=== PATIENT | female | born 2000 | race African-American/Black ===

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

== ENCOUNTER 2019-01-20 04:01 | Emergency (ER) | payer BC ==
[~2019-01-20] VITALS: Ht 165.1 cm; Wt 81.6 kg
[~2019-01-20 04:01] MED LIST changes: +NAPR-514 PO
[2019-01-20 04:56] VITALS: BP 137/88
[2019-01-20 05:02] LABS: BILIRUBIN,URINE NEGATIVE (NEG); CLARITY,URINE CLEAR; COLOR,URINE YELLOW; NITRITE,URINE NEGATIVE (NEG); PROTEIN,URINE NEGATIVE (NEG-TRACE)
--- NOTE | 2019-01-20 05:03 | PHYS DOC ---
Past Medical History Past Medical History: No Pertinent History Past Surgical History: No Surgical History Alcohol Use: None Drug Use: None Adult General Chief Complaint Chief Complaint: ABDOMINAL PAIN HPI HPI Patient is a 18 year old [place] female presents with intermittent abdominal cramping, bloating and diarrhea. Symptom onset was 4-5 days ago. Symptoms are worse after eating. Cramping is migratory is rated [id number]. Patient denies nausea, did vomit once prior to ED arrival. She did take Pepto-Bismol and Imodium last night which seemed to improve her symptoms. Patient denies fever, recent antibiotics, bloody stools, daycare setting exposure, recent travel, camping or known infectious diarrhea exposure. Prior abdominal surgeries. Last menstrual period was 10 days ago. Patient currently denies pain or symptoms in the emergency department. Reports occasional: Tobacco use eyes [] Review of Systems Review of Systems Review symptoms as per history of present illness. All other review symptoms are negative. All other systems were reviewed and found to be within normal limits, except as documented in this note. Allergies Allergies Allergies Coded Allergies Type Severity Reaction Last Updated Verified No Known Drug Allergies 04/18/16 No Physical Exam Physical Exam Constitutional: Well developed, well nourished, no acute distress, non-toxic appearance. [] HENT: Normocephalic, atraumatic, bilateral external ears normal, oropharynx moist, no oral exudates, nose normal. [] Eyes: PERRLA, EOMI, conjunctiva normal, no discharge. [] Neck: Normal range of motion, no tenderness, supple, no stridor. [] Cardiovascular:Heart rate regular rhythm, no murmur [] Lungs & Thorax: Bilateral breath sounds clear to auscultation [] Abdomen: Bowel sounds normal, soft, no distention, increased bowel sounds. No tenderness. [] Skin: Warm, dry,[] Back: No tenderness, no CVA tenderness. [] Extremities: No tenderness, no cyanosis, no clubbing, ROM intact, no edema. [] Neurologic: Alert and oriented X 3, normal motor function, normal sensory function, no focal deficits noted. [] Psychologic: Affect normal, judgement normal, mood normal. [] Current Patient Data Vital Signs Vital Signs Date Time Temp Pulse Resp B/P (MAP) Pulse Ox O2 Delivery O2 Flow Rate FiO2 01/20/19 04:56 98.0 81 12 137/88 (104) 98 Room Air 98.0 Lab Values Laboratory Tests Test 01/20/19 04:04 Urine Collection Type Unknown Urine Color Yellow Urine Clarity Clear Urine pH 6.0 Urine Specific [place] >=1.030 Urine Protein Negative mg/dL (NEG-TRACE) Urine Glucose (UA) Negative mg/dL (NEG) Urine Ketones (Stick) Negative mg/dL (NEG) Urine Blood Negative (NEG) Urine Nitrite Negative (NEG) Urine Bilirubin Negative (NEG) Urine Urobilinogen Dipstick 1.0 mg/dL (0.2 mg/dL) Urine Leukocyte Esterase Negative (NEG) Urine RBC Occ /HPF (0-2) Urine WBC Occ /HPF (0-4) Urine Squamous Epithelial Cells Few /LPF Urine Bacteria Few /HPF (0-FEW) Urine Mucus Mod /LPF EKG EKG [] Radiology/Procedures Radiology/Procedures [] Course & Med Decision Making Course & Med Decision Making Pertinent Labs and Imaging studies reviewed. (See chart for details) [Abdomen is soft, nontender in the ED. Labs reviewed. Recommend supportive care with dietary modification PCP follow-up. Patient states she ate barbecued chicken and macaroni green beans prior to episodes last evening. Return precautions reviewed. Dragon Disclaimer Dragon Disclaimer This electronic medical record was generated, in whole or in part, using a voice recognition dictation system. Departure Departure Impression: Primary Impression: Abdominal pain Additional Impression: Enteritis Referrals: UNKNOWN PCP NAME (PCP) Problem Qualifiers PAKO BALDERAS DO Jan 20, 2019 05:03
[2019-01-20 05:17] LABS: BACTERIA,URINE FEW /HPF (0-FEW); RBC,URINE OCC /HPF (0-2); SQUAMOUS EPITHELIAL CELL,UR FEW /LPF; WBC,URINE OCC /HPF (0-4)
== END 2019-01-20 05:35 | disposition home or self-care (01) ==
LOC: ER 04:01
DX: K52.9 Noninfective gastroenteritis and colitis, unspecified (principal); R10.9 Unspecified abdominal pain; R14.0 Abdominal distension (gaseous)
CPT/HCPCS: 81001; 99283

== ENCOUNTER 2019-08-27 14:28 | Emergency (ER) | payer OTHER ==
[~2019-08-27] VITALS: Ht 166.4 cm; Wt 114.0 kg
[2019-08-27 15:00] VITALS: BP 140/70
--- NOTE | 2019-08-27 15:51 | PHYS DOC ---
Past Medical History Past Medical History: No Pertinent History Past Surgical History: No Surgical History Smoking Status: Never Smoker Alcohol Use: None Drug Use: Marijuana General Adult EDM: Chief Complaint: OTHER COMPLAINTS HPI: HPI: 19-year-old female presents with a ulcer on her frenulum over the last couple of days. She states it is burning. She denies any other symptoms at this time. She does not have any ulcers on her lips or tongue. [] Review of Systems: Review of Systems: Constitutional: Denies fever or chills. [] Eyes: Denies change in visual acuity. [] HENT: Per HPI [] Heart Score: Risk Factors: Risk Factors: DM, Current or recent (<one month) smoker, HTN, HLP, family his tory of CAD, obesity. Risk Scores: Score 0 - 3: 2.5% MACE over next 6 weeks - Discharge Home Score 4 - 6: 20.3% MACE over next 6 weeks - Admit for Clinical Observation Score 7 - 10: 72.7% MACE over next 6 weeks - Early Invasive Strategies Allergies: Allergies: Allergies Coded Allergies Type Severity Reaction Last Updated Verified No Known Drug Allergies 04/18/16 No Physical Exam: PE: Constitutional: Well developed, well nourished, no acute distress, non-toxic appearance. [] HENT: Small aphthous ulcer on her frenulum. [] Eyes: PERRLA, EOMI, conjunctiva normal, no discharge. [] Neck: Normal range of motion, no tenderness, supple, no stridor. [] Cardiovascular:Heart rate regular rhythm, no murmur [] Lungs & Thorax: Bilateral breath sounds clear to auscultation [] Abdomen: Bowel sounds normal, soft, no tenderness, no masses, no pulsatile masses. [] Skin: Warm, dry, no erythema, no rash. [] Back: No tenderness, no CVA tenderness. [] Extremities: No tenderness, no cyanosis, no clubbing, ROM intact, no edema. [] Neurologic: Alert and oriented X 3, normal motor function, normal sensory function, no focal deficits noted. [] Psychologic: Affect normal, judgement normal, mood normal. [] Current Patient Data: Vital Signs: Vital Signs Date Time Temp Pulse Resp B/P (MAP) Pulse Ox O2 Delivery O2 Flow Rate FiO2 08/27/19 15:00 98.3 70 12 140/70 (93) 99 Room Air 98.3 EKG: EKG: [] Radiology/Procedures: Radiology/Procedures: [] Course & Med Decision Making: Course & Med Decision Making Pertinent Labs and Imaging studies reviewed. (See chart for details) [] Dragon Disclaimer: Dragon Disclaimer: This electronic medical record was generated, in whole or in part, using a voice recognition dictation system. Departure Departure Impression: Primary Impression: Aphthous ulcer of mouth Disposition: HOME, SELF-CARE Condition: STABLE Referrals: NO PCP (PCP) Patient Instructions: Oral Ulcers Additional Instructions: Return to the emergency department with any new or concerning symptoms Justicifation of Admission Dx: Justifications for Admission: Justification of Admission Dx: No WON REAVES DO Aug 27, 2019 15:51
== END 2019-08-27 18:37 | disposition home or self-care (01) ==
LOC: ER 14:28
DX: K12.0 Recurrent oral aphthae (principal)
CPT/HCPCS: 99281

== ENCOUNTER 2019-08-29 00:03 | Emergency (ER) | payer OTHER ==
[~2019-08-29] VITALS: Ht 167.6 cm; Wt 113.6 kg
[2019-08-29 02:28] VITALS: BP 123/68
[2019-08-29] MEDS ORDERED: DICL50TA4 PO (02:36)
[2019-08-29] MEDS ORDERED: TRAM50TA PO (02:36)
--- NOTE | 2019-08-29 02:37 | PHYS DOC ---
Past Medical History Past Medical History: No Pertinent History Past Surgical History: No Surgical History Smoking Status: Never Smoker Alcohol Use: None Drug Use: Marijuana General Adult EDM: Chief Complaint: LOWER EXT PAIN HPI: HPI: Patient is a 19 year old female who presents with complaint of menstrual cramps and leg cramps. Patient states that is getting time for her menstrual cycle and she states that she usually has fairly bad menstrual cramps and when she gets the menstrual cramps she usually gets leg cramps in her thighs as well. She states the pain got so bad tonight that she had to leave work. [] Review of Systems: Review of Systems: Constitutional: Denies fever or chills. [] Respiratory: Denies cough or shortness of breath. [] Cardiovascular: Denies chest pain or edema. [] GI: Complains of menstrual cramps. [] Musculoskeletal: Complains of upper thigh cramps/pain. [] Integument: Denies rash. [] Neurologic: Denies headache, focal weakness or sensory changes. [] Heart Score: Risk Factors: Risk Factors: DM, Current or recent (<one month) smoker, HTN, HLP, family history of CAD, obesity. Risk Scores: Score 0 - 3: 2.5% MACE over next 6 weeks - Discharge Home Score 4 - 6: 20.3% MACE over next 6 weeks - Admit for Clinical Observation Score 7 - 10: 72.7% MACE over next 6 weeks - Early Invasive Strategies Allergies: Allergies: Allergies Coded Allergies Type Severity Reaction Last Updated Verified No Known Drug Allergies 04/18/16 No Physical Exam: PE: Constitutional: Well developed, well nourished, no acute distress, non-toxic appearance. [] Cardiovascular:Heart rate regular rhythm, no murmur [] Lungs & Thorax: Bilateral breath sounds clear to auscultation [] Abdomen: Bowel sounds normal, soft, with mild suprapubic tenderness. [] Extremities: No tenderness, no cyanosis, no clubbing, ROM intact, no edema. [] Current Patient Data: Vital Signs: Vital Signs Date Time Temp Pulse Resp B/P (MAP) Pulse Ox O2 Delivery O2 Flow Rate FiO2 08/29/19 00:43 98.3 79 12 117/63 (81) 95 Room Air 98.3 EKG: EKG: [] Radiology/Procedures: Radiology/Procedures: [] Course & Med Decision Making: Course & Med Decision Making Pertinent Labs and Imaging studies reviewed. (See chart for details) [] Dragon Disclaimer: Dragon Disclaimer: This electronic medical record was generated, in whole or in part, using a voice recognition dictation system. Departure Departure Impression: Primary Impression: Menstrual cramps Additional Impression: Leg cramps Disposition: HOME, SELF-CARE Condition: STABLE Referrals: NO PCP (PCP) Patient Instructions: Form - Excuse from Work, School, or Physical Activity, Muscle Cramps Scripts Tramadol Hcl (TRAMADOL HCL) 50 Mg Tablet 50 MG PO Q6HRS PRN for PAIN, #10 TAB Prov: LB HIGGINBOTHAM Jr. DO 08/29/19 Diclofenac Sodium (DICLOFENAC SODIUM) 50 Mg Tablet.dr 1 TAB PO BID PRN for PAIN, #20 TAB Prov: LB HIGGINBOTHAM Jr. DO 08/29/19 Justicifation of Admission Dx: Justifications for Admission: Justification of Admission Dx: Comment: (Not applicable) LB HIGGINBOTHAM Jr. DO Aug 29, 2019 02:37
== END 2019-08-29 03:00 | disposition home or self-care (01) ==
LOC: ER 00:03
DX: N94.6 Dysmenorrhea, unspecified (principal); M79.659 Pain in unspecified thigh; F12.90 Cannabis use, unspecified, uncomplicated
CPT/HCPCS: 99283

== ENCOUNTER 2019-10-08 20:13 | Emergency (ER) | payer OTHER ==
[~2019-10-08] VITALS: Ht 165.1 cm; Wt 108.0 kg
[~2019-10-08 20:13] MED LIST changes: +DICL50TA4 PO; +TRAM50TA PO
[2019-10-08 20:23] VITALS: BP 143/68
--- NOTE | 2019-10-08 20:28 | PHYS DOC ---
Past Medical History Past Medical History: No Pertinent History Past Surgical History: No Surgical History Smoking Status: Current Some Day Smoker Alcohol Use: None Drug Use: Marijuana General Adult EDM: Chief Complaint: TOE PROBLEM HPI: HPI: Patient is a 19 year old female who presents with pain in left 4th and 5th toes from blisters over the last 24 hours. pain is moderate and worse w/ walking. patient was given ibuprofen but didn't take any Review of Systems: Review of Systems: Constitutional: Denies fever or chills. [] Eyes: Denies change in visual acuity. [] HENT: Denies nasal congestion or sore throat. [] Respiratory: Denies cough or shortness of breath. [] Cardiovascular: Denies chest pain or edema. [] GI: Denies abdominal pain, nausea, vomiting, bloody stools or diarrhea. [] : Denies dysuria. [] Musculoskeletal: Denies back pain or joint pain. [] Integument: Denies rash. [] Neurologic: Denies headache, focal weakness or sensory changes. [] Endocrine: Denies polyuria or polydipsia. [] Lymphatic: Denies swollen glands. [] Psychiatric: Denies depression or anxiety. [] Heart Score: Risk Factors: Risk Factors: DM, Current or recent (<one month) smoker, HTN, HLP, family history of CAD, obesity. Risk Scores: Score 0 - 3: 2.5% MACE over next 6 weeks - Discharge Home Score 4 - 6: 20.3% MACE over next 6 weeks - Admit for Clinical Observation Score 7 - 10: 72.7% MACE over next 6 weeks - Early Invasive Strategies Allergies: Allergies: Allergies Coded Allergies Type Severity Reaction Last Updated Verified No Known Drug Allergies 04/18/16 No Physical Exam: PE: Constitutional: Well developed, well nourished, no acute distress, non-toxic appearance. [] HENT: Normocephalic, atraumatic, bilateral external ears normal, no trismus nose normal. [] Eyes: PERRLA, EOMI, conjunctiva normal, no discharge. [] Neck: Normal range of motion, no tenderness, supple, no stridor. [] Cardiovascular:Heart rate regular rhythm, medical review coordinator brisk, peripheral pulses intact Lungs & Thorax: no resp distress Abdomen: soft, no tenderness, no masses, no pulsatile masses. [] Skin: Warm, dry, no erythema, no rash. [] Back: No tenderness, no CVA tenderness. [] Extremities: small blisters to the plantar distal aspects of left 4th/5th toes. no s/s of infection. no cyanosis, no clubbing, ROM intact, no edema. [] Neurologic: Alert and oriented X 3, normal motor function, normal sensory function, no focal deficits noted. [] Psychologic: Affect normal, judgement normal, mood normal. [] EKG: EKG: [] Radiology/Procedures: Radiology/Procedures: [] Course & Med Decision Making: Course & Med Decision Making Pertinent Labs and Imaging studies reviewed. (See chart for details) []pt w/ simple blisters, no distress. stable for d/c. d/w pt motrin and neosporin and bandaids Dragon Disclaimer: Dragon Disclaimer: This electronic medical record was generated, in whole or in part, using a voice recognition dictation system. Departure Departure Impression: Primary Impression: Blister of toe of left foot Disposition: HOME, SELF-CARE Condition: STABLE Referrals: NO PCP (PCP) pcp 2-3 days Patient Instructions: Blisters Additional Instructions: EMERGENCY DEPARTMENT GENERAL DISCHARGE INSTRUCTIONS THANK YOU for coming to [facility] Emergency Department (ED) today and trusting us with your care. We trust that you had a positive experience in our Emergency Department. If you wish to speak to the department Management you can contact the parts department supervisor at . YOUR FOLLOW UP INSTRUCTIONS ARE FOLLOWS: Do you have a private doctor? If you do not have a private doctor, please ask for a resource list of physicians or clinics that may be able to assist you with follow up care. The Emergency Physician has interpreted your x-rays. The X-ray specialist will also review them. If there is a change in the findings you will be notified in 48 hours when at all possible. A lab test or lab culture may have been done, your results will be reviewed and you will be notified if you need a change in treatment. ADDITIONAL INSTRUCTIONS AND INFORMATION Your care today has been supervised by a physician who is specially trained in emergency care. Many problems require more than one evaluation for a complete diagnosis and treatment. We recommend that you schedule your follow up appointment as recommended to ensu re complete treatment of your illness or injury. If you are unable to obtain follow up care and continue to have a problem, or if your condition worsens we recommend that you return to the ED. We are not able to safely determine your condition over the phone nor are we able to give sound medical advice over the phone. For these safety reasons, if you call for medical advice we will ask you to come to the ED for further evaluation If you have any questions regarding these discharge instructions please call the ED at . SAFETY INFORMATION In the interest of safety, wellness, and injury prevention; we encourage you to wear your seatbelt, if you smoke; quit smoking, and we encourage your family to use protective helmet for bicycling and other sporting events that present an increased risk for head injury. IF YOUR SYMPTOMS WORSEN OR NEW SYMPTOMS DEVELOP, OR YOU HAVE CONCERNS ABOUT YOUR CONDITION; OR IF YOUR CONDITION WORSENS WHILE YOU ARE WAITING FOR YOUR FOLLOW UP APPOINTMENT; EITHER CONTACT YOUR PRIMARY CARE DOCTOR, THE PHYSICIAN WHOSE NAME AND NUMBER YOU WERE GIVEN, OR RETURN TO THE ED IMMEDIATELY. Justicifation of Admission Dx: Justifications for Admission: Justification of Admission Dx: N/A CIARA DELGADO MD Oct 08, 2019 20:28
== END 2019-10-08 20:40 | disposition home or self-care (01) ==
LOC: ER 20:13
DX: S90.425A Blister (nonthermal), left lesser toe(s), initial encounter (principal); F17.200 Nicotine dependence, unspecified, uncomplicated; F12.90 Cannabis use, unspecified, uncomplicated; X58.XXXA Exposure to other specified factors, initial encounter; Y93.89 Activity, other specified; Y92.89 Other specified places as the place of occurrence of the external cause; Y99.8 Other external cause status
CPT/HCPCS: 99282

== ENCOUNTER 2019-11-13 13:46 | Emergency (ER) | payer OTHER ==
[~2019-11-13] VITALS: Ht 165.1 cm; Wt 104.5 kg
[2019-11-13 14:07] VITALS: BP 121/72
--- NOTE | 2019-11-13 14:45 | PHYS DOC ---
Past Medical History Past Medical History: No Pertinent History (BUBBA OLIVER MAINTENANCE ASSISTANT) Past Surgical History: Tonsillectomy Additional Past Surgical Histo: DENTAL, (BUBBA OLIVER MAINTENANCE ASSISTANT) Smoking Status: Current Every Day Smoker Alcohol Use: None Drug Use: Marijuana (BUBBA OLIVER MAINTENANCE ASSISTANT) General Adult EDM: Chief Complaint: ABSCESS HPI: HPI: Patient is a 19 year old female who presents with 4 days ago noticed a hard nodule in her throat which appears to be her thyroid. She states at times it hurts with swallowing. Patient states that her thyroid is slightly tender to palpation with exam. Throat is pink and there is no swelling or exudates. She denies fever, headache, sore throat, trouble swallowing, trouble eating, shortness of breath, abdominal pain, nausea, vomiting, diarrhea, constipation. Patient has history of smoking. Denies pain at this time. (BUBBA OLIVER MAINTENANCE ASSISTANT) Review of Systems: Review of Systems: Constitutional: Denies fever or chills. [] Eyes: Denies change in visual acuity. [] HENT: Denies nasal congestion or sore throat. Swelling in throat. [] Respiratory: Denies cough or shortness of breath. [] Cardiovascular: Denies chest pain or edema. [] GI: Denies abdominal pain, nausea, vomiting, bloody stools or diarrhea. [] : Denies dysuria. [] Musculoskeletal: Denies back pain or joint pain. [] Integument: Denies rash. [] Neurologic: Denies headache, focal weakness or sensory changes. [] Endocrine: Denies polyuria or polydipsia. [] Lymphatic: Denies swollen glands. [] Psychiatric: Denies depression or anxiety. [] (BUBBA OLIVER MAINTENANCE ASSISTANT) Heart Score: Risk Factors: Risk Factors: DM, Current or recent (<one month) smoker, HTN, HLP, family history of CAD, obesity. Risk Scores: Score 0 - 3: 2.5% MACE over next 6 weeks - Discharge Home Score 4 - 6: 20.3% MACE over next 6 weeks - Admit for Clinical Observation Score 7 - 10: 72.7% MACE over next 6 weeks - Early Invasive Strategies (BUBBA OLIVER MAINTENANCE ASSISTANT) Allergies: Allergies: Allergies Coded Allergies Type Severity Reaction Last Updated Verified No Known Drug Allergies 2/13/17 No (BUBBA OLIVER APRN) Physical Exam: PE: Constitutional: Well developed, well nourished, no acute distress, non-toxic appearance. [] HENT: Normocephalic, atraumatic, bilateral external ears normal, oropharynx moist, no oral exudates, nose normal. [] Eyes: PERRLA, EOMI, conjunctiva normal, no discharge. [] Neck: Normal range of motion, slight thyroid tenderness with palpation but no nodules felt, supple, no stridor. [] Cardiovascular:Heart rate regular rhythm, no murmur [] Lungs & Thorax: Bilateral breath sounds clear to auscultation [] Abdomen: Bowel sounds normal, soft, no tenderness, no masses, no pulsatile masses. [] Skin: Warm, dry, no erythema, no rash. [] Back: No tenderness, no CVA tenderness. [] Extremities: No tenderness, no cyanosis, no clubbing, ROM intact, no edema. [] Neurologic: Alert and oriented X 3, normal motor function, normal sensory function, no focal deficits noted. [] Psychologic: Affect normal, judgement normal, mood normal. [] (BUBBA OLIVER APRN) Current Patient Data: Vital Signs: Vital Signs Date Time Temp Pulse Resp B/P (MAP) Pulse Ox O2 Delivery O2 Flow Rate FiO2 11/13/19 14:07 98.1 95 18 121/72 (88) 98 Room Air 98.1 (BUBBA OLIVER APRN) EKG: EKG: [] (BUBBA OLIVER APRN) Radiology/Procedures: Radiology/Procedures: [] Impression: [facility] [address] [place] [address] IMAGING REPORT Signed PATIENT: PEE WEINBERG DACCOUNT: [id number] : 2000 LOCATION: ER AGE: 19 SEX: F EXAM STATUS: REG ER ORD. PHYSICIAN: BUBBA OLIVER APRN REASON: PAIN LUMP FELT INF TO CHIN PROCEDURE: NECK SOFT TISSUE Exam: Ultrasound soft tissue neck Indication: Pain, lump felt inferior to change in Technique: Real-time grayscale and color Doppler images of the soft tissue neck were obtained by the department nike athlete. Comparisons: None FINDINGS: Visualized portions of the thyroid are unremarkable. In the area of interest inferior to the chin there are several enlarged abnormal-appearing lymph nodes, largest measuring 2.2 x 1.1 cm. No focal fluid collection is identified. IMPRESSION: In the area of interest inferior to the chin there are several enlarged abnormal-appearing lymph nodes. These are nonspecific in etiology. Conical follow-up imaging follow-up for resolution is recommended. Electronically signed by: Genesis Peguero MD (11/13/2019 4:02 PM) [id number] DICTATED and SIGNED BY: GENESIS PEGUERO MD DATE: 11/13/19 160 (BUBBA OLIVER APRN) Course & Med Decision Making: Course & Med Decision Making Pertinent Labs and Imaging studies reviewed. (See chart for details) See HPI. Vital signs within normal limits. Abdomen is soft and nontender. Liver enzymes are elevated. Addison test is positive. I will place patient on Medrol Dosepak. Patient will be educated not to do any strenuous activity or play contact sports for the next 6 to 8 weeks. She will be advised if she happens to get it in the abdomen or anococcygeal to come to the hospital due to possible splenic rupture. [] (BUBBA OLIVER APRN) Course & Med Decision Making I have reviewed the PA/COTTON INSPECTOR's note and Plan of Care. I was available for consultation as needed during the patient's visit in the emergency department. I agree with the clinical impression, plans and disposition. (CIARA DELGADO MD) Juon Disclaimer: Zee Disclaimer: This electronic medical record was generated, in whole or in part, using a voice recognition dictation system. (BUBBA OLIVER APRN) Departure Departure Referrals: NO PCP (PCP) Patient Instructions: Infectious Mononucleosis Additional Instructions: Follow-up with primary care provider. No contact sports or strenuous activity for the next 6 to 8 weeks. If for any reason you get into any kind of a car accident or get hit in the abdomen you need to come to the emergency room because there is a possibility that your spleen could rupture. Drink plenty of fluids. Take ibuprofen for your pain or if you start to run a fever. Do not let anybody else drink after you or share a toothbrush or eating utensils after you had used it. Scripts Ibuprofen (IBUPROFEN) 600 Mg Tablet 600 MG PO PRN Q6HRS PRN for INFLAMMATION, #30 TAB Prov: BUBBA OLIVER APRN 11/13/19 Methylprednisolone (MEDROL) 4 Mg Tab.ds.pk 1 PKG PO UD, #1 PKG Prov: BUBBA OLIVER APRN 11/13/19 Justicifation of Admission Dx: Justifications for Admission: Justification of Admission Dx: N/A (BUBBA OLIVER APRN) BUBBA OLIVER APRN Nov 13, 2019 14:45 CIARA DELGADO MD Nov 13, 2019 16:58
[2019-11-13 15:04] LABS: BASO # 0.1 x10^3/uL (0.0-0.2); BASO % 1 % (0-3); EOS # 0.2 x10^3/uL (0.0-0.7); EOS % 3 % (0-3); HEMATOCRIT 44.4 % (36.0-47.0); HEMOGLOBIN 14.9 g/dL (12.0-15.5); LYMPH # 2.9 x10^3/uL (1.0-4.8); LYMPH % 39 % (24-48); MEAN CORPUSCULAR HEMOGLOBIN 27 pg (25-35); MEAN CORPUSCULAR HGB CONC 34 g/dL (31-37); MEAN CORPUSCULAR VOLUME 82 fL (79-100); MONO # 0.8 x10^3/uL (0.0-1.1); MONO % 11 % (0-9); NEUT # 3.6 x10^3/uL (1.8-7.7); NEUT % 47 % (31-73); PLATELET COUNT 185 x10^3/uL (140-400); RED BLOOD COUNT 5.42 x10^6/uL (3.50-5.40); RED CELL DISTRIBUTION WIDTH 14.6 % (11.5-14.5); WHITE BLOOD COUNT 7.6 x10^3/uL (4.0-11.0)
[2019-11-13 15:13] LABS: CALCIUM 9.1 mg/dL (8.5-10.1); CREATININE 0.7 mg/dL (0.6-1.0); GFR 129.1; POTASSIUM 4.3 mmol/L (3.5-5.1)
[2019-11-13 15:18] LABS: BILIRUBIN,URINE NEGATIVE (NEG); COLOR,URINE YELLOW; NITRITE,URINE NEGATIVE (NEG); PH,URINE 6.5 (<5.0-8.0); PROTEIN,URINE NEGATIVE (NEG-TRACE); UROBILINOGEN,URINE 0.2 mg/dL (0.2 mg/dL)
[2019-11-13 15:18] LABS: ALBUMIN 3.7 g/dL (3.4-5.0); ALBUMIN/GLOBULIN RATIO 0.9 (1.0-1.7); TOTAL BILIRUBIN 0.2 mg/dL (0.2-1.0); TOTAL PROTEIN 7.8 g/dL (6.4-8.2)
[2019-11-13 15:25] LABS: CLARITY,URINE CLEAR
[2019-11-13 15:26] LABS: BACTERIA,URINE FEW /HPF (0-FEW); SQUAMOUS EPITHELIAL CELL,UR FEW /LPF
[2019-11-13 15:27] LABS: RBC,URINE 0 /HPF (0-2); WBC,URINE 0 /HPF (0-4)
--- NOTE | 2019-11-13 16:05 | RAD ---
Exam: Ultrasound soft tissue neck Indication: Pain, lump felt inferior to change in Technique: Real-time grayscale and color Doppler images of the soft tissue neck were obtained by the department timber treating tank operator. Comparisons: None FINDINGS: Visualized portions of the thyroid are unremarkable. In the area of interest inferior to the chin there are several enlarged abnormal-appearing lymph nodes, largest measuring 2.2 x 1.1 cm. No focal fluid collection is identified. IMPRESSION: In the area of interest inferior to the chin there are several enlarged abnormal-appearing lymph nodes. These are nonspecific in etiology. Conical follow-up imaging follow-up for resolution is recommended. Electronically signed by: Genesis Allison MD (11/13/2019 4:02 PM) [id number]
[2019-11-13 16:24] LABS: MONONUCLEOSIS PATIENT POSITIVE (NEGATIVE)
[2019-11-13] MEDS ORDERED: METH4TAB2 PO (16:45)
[2019-11-13] MEDS ORDERED: IBUP-1007 PO (16:45)
== END 2019-11-13 16:54 | disposition home or self-care (01) ==
LOC: ER 13:46
DX: L04.0 Acute lymphadenitis of face, head and neck (principal); F17.200 Nicotine dependence, unspecified, uncomplicated; F12.90 Cannabis use, unspecified, uncomplicated; Z90.89 Acquired absence of other organs; Z98.890 Other specified postprocedural states
CPT/HCPCS: 36415; 76536; 80053; 81001; 83690; 84443; 85025; 86308; 87070; 87880; 99284

== ENCOUNTER 2020-03-15 06:16 | Emergency (ER) | payer SELFPAY ==
[~2020-03-15] VITALS: Ht 166.4 cm; Wt 104.5 kg
[~2020-03-15 06:16] MED LIST changes: +IBUP-1007 PO; +METH4TAB2 PO
[2020-03-15 06:17] VITALS: BP 136/59
[2020-03-15] MEDS ORDERED: NAPR-695 PO (06:44)
[2020-03-15] MEDS ORDERED: PRED20TA PO (06:44)
[2020-03-15] MEDS ORDERED: ORPH100T PO (06:44)
[2020-03-15] MEDS ORDERED: ORPHENADRINE CITRATE 60 MG/2 ML VIAL. IM ONE (06:45)
[2020-03-15] MEDS ORDERED: KETOROLAC 30 MG/ML VIAL. IM ONE (06:45)
[2020-03-15] MEDS ORDERED: DEXAMETHASONE 4 MG TABLET PO ONE (06:45)
--- NOTE | 2020-03-15 06:45 | PHYS DOC ---
Past Medical History Past Medical History: No Pertinent History Past Surgical History: Tonsillectomy Additional Past Surgical Histo: DENTAL, Smoking Status: Current Every Day Smoker Alcohol Use: None Drug Use: Marijuana General Adult EDM: Chief Complaint: BACK PAIN - NO INJURY HPI: HPI: Patient is a 19 year old female presents via EMS with report right-sided mid back pain that started this morning. Reports worse with movement. Patient denies known trauma. Denies dysuria. Denies . Patient reports she is currently on her menstrual cycle. Denies vomiting. Denies history of kidney stones. Patient reports she has had a similar occurrence in the past which was thought to be muscular in nature. Patient reports she took some [id number] "pain reliever " prior to arrival without any improvement. Review of Systems: Review of Systems: Constitutional: Denies fever or chills Eyes: Denies redness or eye pain HENT: Denies nasal congestion or sore throat Respiratory: Denies cough or shortness of breath Cardiovascular: Denies chest pain or palpitations GI: Denies abdominal pain, nausea, or vomiting : Denies dysuria or hematuria Musculoskeletal: Reports back pain; denies joint pain Integument: Denies rash or skin lesions Neurologic: Denies headache, focal weakness or sensory changes Complete systems were reviewed and found to be within normal limits, except as documented in this note. Allergies: Allergies: Allergies Coded Allergies Type Severity Reaction Last Updated Verified No Known Drug Allergies 04/18/16 No Physical Exam: PE: Constitutional: Well developed, well nourished, no acute distress, non-toxic appearance HENT: Normocephalic, atraumatic Eyes: Conjunctiva normal, no discharge Neck: Normal range of motion, no tenderness, supple Lungs & Thorax: No respiratory distress, equal chest rise and fall Abdomen: Soft, no tenderness Skin: Warm, dry, no erythema, no rash Back: No midline tenderness, no CVA tenderness, right lower thoracic paraspinal tenderness on palpation Extremities: No tenderness, ROM intact, no edema Neurologic: Alert and oriented X 3, no focal deficits noted Psychologic: Affect normal, judgment normal EKG: EKG: [] Radiology/Procedures: Radiology/Procedures: [] Course & Med Decision Making: Course & Med Decision Making Patient presents with HPI and physical exam concerning for musculoskeletal right lower thoracic back pain. No CVA tenderness. No history of kidney stones. Denies vomiting. Denies . Symptomatic treatment provided with IM ketorolac and Norflex. Oral steroid provided. Ice applied. Patient stable for discharge with outpatient follow-up with PCP/pain management. Pain management referral provided. Discussed findings and plan with patient, who acknowledges understanding and agreement. Zee Disclaimer: eZe Disclaimer: This electronic medical record was generated, in whole or in part, using a voice recognition dictation system. Departure Departure Impression: Primary Impression: Acute thoracic back pain Qualified Codes: M54.6 - Pain in thoracic spine Disposition: DC HOME SELF CARE/HOMELESS Condition: STABLE Referrals: NO PCP (PCP) JUAN J GUARDADO MD Patient Instructions: Back Pain, Adult, [id number] Additional Instructions: ICE area of discomfort 20 min on then leave off next 20 mins. Repeat several times daily for next few days. After 72 hours may also use heat instead of ICE. May also take over the counter Tylenol (acetaminophen) as needed for pain. Scripts Prednisone (PREDNISONE) 20 Mg Tablet 2 TAB PO DAILY, #8 TAB Start this prescription tomorrow, Monday03/16/20 Prov: SOBEIDA BULLOCK DO 03/15/20 Naproxen (NAPROXEN) 375 Mg Tablet 375 MG PO TID PRN PRN for PAIN, #20 TAB Prov: SOBEIDA BULLOCK DO 03/15/20 Orphenadrine Citrate (ORPHENADRINE CITRATE) 100 Mg Tablet.er 100 MG PO BID PRN for MUSCLE PAIN, #14 TAB Prov: SOBEIDA BULLOCK DO 03/15/20 SOBEIDA BULLOCK DO Mar 15, 2020 06:44
[2020-03-15] MEDS ORDERED: ONDANSETRON ODT 4 MG TAB.RAPDIS. PO ONE (07:00)
[2020-03-15] MEDS ORDERED: ONDA4TAB12 PO (07:08)
== END 2020-03-15 07:10 | disposition home or self-care (01) ==
LOC: ER 06:16
DX: M54.6 Pain in thoracic spine (principal); F17.200 Nicotine dependence, unspecified, uncomplicated; F12.90 Cannabis use, unspecified, uncomplicated; Z90.89 Acquired absence of other organs; Z98.890 Other specified postprocedural states
CPT/HCPCS: 96372; 99284; J1885; J2360